=== PATIENT | female | born 1990 | race African-American/Black ===

== ENCOUNTER 2022-02-14 06:37 | Inpatient (IN) ==
[2022-02-14] MEDS ORDERED: D5 1/2 NS 1,000 ML 1,000 ML IV ONE (06:50)
[2022-02-14] MEDS ORDERED: BETADINE SOLN ONE (06:50)
[2022-02-14] MEDS ORDERED: PITOCIN ONE ×2 (06:50→14:05)
[2022-02-14] MEDS ORDERED: [UNRECOGNIZED DRUG - OTHER] IV ONE (06:51)
[2022-02-14] MEDS ORDERED: D5 LR + PITOCIN 10 UNITS/L 10 UNITS/1,000 ML BAG IV ONE (06:51)
[2022-02-14] MEDS ORDERED: DEXTROSE IV ONE (06:51)
[2022-02-14] MEDS ORDERED: OXYTOCIN IV ONE (06:51)
[2022-02-14] MEDS ORDERED: REGLAN INJ 10 MG VIAL IVP PRN ×3 (06:58→15:45)
[2022-02-14] MEDS ORDERED: PHENERGAN INJ 25 MG IM PRN ×2 (06:58→15:44)
[2022-02-14] MEDS ORDERED: D5 LR + PITOCIN 10 UNITS/L 10 UNITS/1,000 ML BAG IV PRN (06:58)
[2022-02-14] MEDS ORDERED: PITOCIN IVP ONE (06:58)
[2022-02-14] MEDS: D5 1/2 NS 1,000 ML 1,000 ML IV SCH ×2 (07:00→19:02)
[2022-02-14 07:44] LABS: HEMOGLOBIN 11.5 g/dL (12.0-16.0); MEAN CORPUSCULAR HEMOGLOBIN 30.8 pg (27.0-34.0)
[2022-02-14 07:44] LABS: BILIRUBIN,URINE NEGATIVE (NEGATIVE); BLOOD/HEMOGLOBIN,URINE 1+ (NEGATIVE); GLUCOSE, URINE 2+ (NEGATIVE); KETONES,URINE NEGATIVE (NEGATIVE); LEUKOCYTE ESTERASE ,URINE 2+ (NEGATIVE); NITRITES,URINE NEGATIVE (NEGATIVE); PROTEIN,URINE 1+ (NEGATIVE); UROBILINOGEN,URINE NORMAL (NORMAL)
[2022-02-14 07:53] LABS: BASOPHILS % (AUTO) 0.5 % (0.2-1.0); EOSINOPHILS # (AUTO) 0.1 x10^3/uL (0.0-0.2); EOSINOPHILS % (AUTO) 2.4 % (0.9-2.9); LYMPHOCYTES # (AUTO) 2.5 X10^3/uL (1.3-2.9); LYMPHOCYTES % (AUTO) 40.6 % (21.0-51.0); MEAN CORPUSCULAR HGB CONC 35.9 g/dL (33.0-35.0); MEAN CORPUSCULAR VOLUME 85.6 fL (80.0-100.0); MEAN PLATELET VOLUME 9.3 fL (7.4-11.0); MONOCYTES # (AUTO) 0.4 x10^3/uL (0.3-0.8); MONOCYTES % (AUTO) 6.4 % (0.0-13.0); NEUTROPHILS % (AUTO) 50.1 % (42.0-75.0); RED BLOOD COUNT 3.73 X10^6/uL (3.5-5.4); RED CELL DISTRIBUTION WIDTH 13.7 % (11.6-16.5)
[2022-02-14 07:59] LABS: BLOOD UREA NITROGEN 5 mg/dL (7-18); CALCIUM 8.9 mg/dL (8.5-10.1); CARBON DIOXIDE 22.4 mmol/L (21-32); CHLORIDE 104 mmol/L (98-107); COR NA(FOR HYPERGLY) 138 mmol/L (136-145); SODIUM 136 mmol/L (136-145); eGFR NON BLACK RACES > 60 (>60)
[2022-02-14 08:00] LABS: APPEARANCE,URINE CLOUDY (CLEAR); BACTERIA,URINE 1+ /HPF (NEGATIVE); COLOR,URINE YELLOW (YELLOW); SQUAMOUS EPITHELIAL CELL,UR NUMEROUS /HPF (NEGATIVE)
[2022-02-14] MEDS ORDERED: NS 100 ML IV 100 ML ONE (13:19)
[2022-02-14] MEDS ORDERED: ANCEF VIAL 1 GRAM ONE (13:19)
[2022-02-14] MEDS ORDERED: LR 1,000 ML IV 1,000 ML IV ONE ×2 (13:21→14:42)
[2022-02-14] MEDS ORDERED: ZITHROMAX INJ 500 MG VIAL IV ONE (13:59)
[2022-02-14] MEDS ORDERED: BICITRA 30 ML PO ONE (14:02)
[2022-02-14] MEDS ORDERED: NS 250 ML IV 250 ML IV ONE (14:03)
[2022-02-14] MEDS ORDERED: VERSED ONE (14:04)
[2022-02-14] MEDS ORDERED: DILAUDID INJ ONE (14:04)
[2022-02-14] MEDS ORDERED: MARCAINE SPINAL ONE (14:05)
[2022-02-14] MEDS ORDERED: XYLOCAINE 2 % (PLAIN) ONE (14:07)
[2022-02-14] MEDS ORDERED: DILAUDID INJ IVP PRN (15:44)
[2022-02-14] MEDS ORDERED: ZOFRAN INJ 4 MG VIAL IVP PRN ×2 (15:44→15:45)
[2022-02-14] MEDS ORDERED: BARHEMSYS INJ IVP PRN (15:44)
[2022-02-14] MEDS ORDERED: BENADRYL INJ 50 MG VIAL IVP PRN ×2 (15:44→15:45)
[2022-02-14] MEDS ORDERED: TORADOL 30 MG VIAL IVP PRN (15:45)
[2022-02-14] MEDS ORDERED: PERCOCET TAB 5/325 MG PO PRN (15:45)
[2022-02-14] MEDS ORDERED: NARCAN INJ IVP PRN ×2 (15:45)
[2022-02-14] MEDS ORDERED: HYPERRHO S/D (or RHOGAM) IM PRN (16:19)
[2022-02-14] MEDS ORDERED: MYLICON TAB 80 MG CHEW PO PRN (16:19)
[2022-02-14] MEDS ORDERED: ADACEL or BOOSTRIX TDaP VACCINE IM ONE (16:19)
[2022-02-14] MEDS: TORADOL 30 MG VIAL IVP SCH ×2 (16:58→22:09)
[2022-02-14] MEDS: D5 1/2 NS 1,000 ML 1,000 ML with PITOCIN 20 UNITS IV SCH ×2 (19:27)
[2022-02-15] MEDS: D5 1/2 NS 1,000 ML 1,000 ML with PITOCIN 20 UNITS IV SCH ×4 (02:24→08:10)
[2022-02-15] MEDS: TORADOL 30 MG VIAL IVP SCH ×2 (03:33→10:07)
[2022-02-15 04:43] LABS: HEMATOCRIT 27.6 % (36.0-47.0)
[2022-02-15 04:57] LABS: HEMOGLOBIN 9.9 g/dL (12.0-16.0)
--- NOTE | 2022-02-15 07:28 | NOTE.PROBC ---
Progress Note OB-C/S Subjective Data Subjective: No complaints, decreased lochia. Tolerating regular diet. No N/V. Ambulating well. Blake draining well. Pain under good control with toradol. Objective Data Result Diagrams: 02/15/22 03:30 02/14/22 07:16 Objective Data: CV= RRR no MRG Lungs=CTA Bilaterally Abd=(+) BS, soft, ND, appropriately tender near incision. Bandage removed. Incision clean/dry/intact, no erythema, no bleeding, no discharge. Dermabond/Stitches intact. Fundus firm/NT/ at { } cm below umbilicus. Ext= No edema, NT, No Cords. Graduated Compression Stockings/Sequential Compression Devices Bilaterally. Assessment Assessment: doing well. requesting D/C Plan (1) Postcesarean section: Plan: D/C today
[2022-02-15] MEDS ORDERED: PRENATAL PLUS PO SCH (09:00)
[2022-02-15 13:08] VITALS: BP 130/75
[2022-02-15] MEDS ORDERED: TORADOL 30 MG VIAL IVP PRN (15:49)
[2022-02-15] MEDS ORDERED: TORADOL 30 MG VIAL IM PRN (15:49)
== END 2022-02-15 17:05 | disposition home or self-care (01) | DRG 787 ==
LOC: LD 06:37 → MED/SURG 16:15
PROVIDERS: ADMIT Obstetrics & Gynecology; ATTEND Obstetrics & Gynecology
DX: O99.323 Drug use complicating pregnancy, third trimester; O13.3 Gestational [pregnancy-induced] hypertension without significant proteinuria, third trimester; Z3A.39 39 weeks gestation of pregnancy; O33.9 Maternal care for disproportion, unspecified; F12.90 Cannabis use, unspecified, uncomplicated; O24.419 Gestational diabetes mellitus in pregnancy, unspecified control; O62.0 Primary inadequate contractions; Z37.0 Single live birth